=== PATIENT | male | born 1960 | race Two or more races ===

== ENCOUNTER 2016-09-28 18:55 | Emergency (ER) | payer MEDICAID ==
[2016-09-28] MEDS ORDERED: ACETAMINOPHEN 325 MG TAB PO ONE (19:19)
[2016-09-28] MEDS ORDERED: IBUPROFEN 200 MG TAB PO ONE (19:19)
--- NOTE | 2016-09-28 19:24 | UCPHY ---
H & P Patient Type: Established Time Seen by Provider: 09/28/16 19:17 HPI/ROS: CHIEF COMPLAINT: [cough, fever, chills ] HISTORY OF PRESENT ILLNESS: [56-year-old male has been ill for the last 3 days. For the beginning he has had a fever that is moderate in nature though he has not checked. He has also had a dry cough with some sense of overall fatigue. There has only been a mild headache and really no body aches. Cannot recall any specific exposure. He did not get the seasonal influenza vaccination. We are currently an epidemic of influenza at this time. He does have some psychiatric medicines that he is to take but only took it for few days and stop. He is followed by the clinic. He reports that he really does not like taking medications. Thus it is unclear as to whether he has much in the way of underlying problems as at 1 point in time he was on high blood pressure medicines. He at this time devise being diabetic, asthmatic, or having a heart condition or lung condition. ] REVIEW OF SYSTEMS: Constitutional: See above Eyes: No discharge ENT: No sore throat. Cardiovascular: No chest pain, no palpitations. Respiratory: No shortness of breath, or wheezing. Gastrointestinal: No nausea vomiting or diarrhea. No abdominal pain. Genitourinary: No hematuria or frequency. Musculoskeletal: No back pain. Skin: No rashes. Neurological: No headache. 10 point ROS otherwise negative Source: Patient Exam Limitations: No limitations - Personal History Tetanus Vaccine Date: 2009 - Medical/Surgical History Hx Asthma: No Hx Chronic Respiratory Disease: No Hx Diabetes: No Hx Cardiac Disease: Yes Hx Renal Disease: No Hx Cirrhosis: No Hx Alcoholism: No Hx HIV/AIDS: No Hx Splenectomy or Spleen Trauma: No Other PMH: DENIES - Family History Significant Family History: No pertinent family hx - Social History Smoking Status: Never smoked Alcohol Use: None Drug Use: None - Physical Exam Exam: General Appearance: Alert, moderately ill though hemodynamically in no distress. Febrile. Normal phonation. No respiratory distress. Thick accent, speaks Beninese well. Eyes: Pupils equal and round no pallor or injection. No icterus ENT, Mouth: Mucous membranes dry. Pharynx without erythema or exudate. TM Clear. Neck: No adenopathy. Supple. No JVD. Trachea in midline. Respiratory: There are no retractions, lungs so some rales at the right base Cardiovascular: Regular rate and rhythm, no murmur Abdomen: Soft and nontender, no masses, bowel sounds normal. Femoral pulses equal. Neurological: Ox3. No motor weakness. Sensation intact. Gait nl. Skin: Warm and dry, no rashes. Musculoskeletal: No joint swelling. Extremities: No edema. Psychiatric: Patient is oriented X 3, there is no agitation. Constitutional: Initial Vital Signs Temperature (C) 39.3 C H 09/28/16 19:05 Heart Rate 102 H 09/28/16 19:05 Respiratory Rate 18 09/28/16 19:05 Blood Pressure 180/98 H 09/28/16 19:05 O2 Sat (%) 94 09/28/16 19:05 O2 Delivery Mode Room Air Allergies/Adverse Reactions: No Known Allergies Allergy (Verified 09/28/16 19:15) Home Medications: Medication Instructions Recorded Oseltamivir Phosphate [Tamiflu 75 75 mg PO BID #0 cap 09/28/16 mg (*)] levOFLOXACIN [Levofloxacin] 500 mg PO DAILY #10 tablet 09/28/16 Medical Decision Making - Diagnostics Imaging: My Plain Film Review: Plain film of chest two view series. Interpreted by radiologist. Films reviewed me. [ normal heart. Normal lungs. No signs of pneumonia.] ED Course/Re-evaluation: Patient given the following after initial examination: Ibuprofen 600 mg Tylenol 975 mg A L of fluid. NS Chest x-ray: Two view chest. Interpreted by radiologist as negative. Influenza negative White count normal Blood glucose elevated 180, could be a stress response however suspicious for diabetes. LFTs low, protein adequate Once the lactic acid of 3.9 was identified he was given additional 1.5 L of normal saline for a total of 30 cc/kilos. At that time the plan would be to have another lactic acid tested. I reviewed this plan at this time and he is reticent. He really does want to go the hospital a regardless. I feel it best for us to cross separation we get there. Approximately an hour later, I was called to the bedside. Patient really did want to stay any longer. I discussed with him prospect that indeed the follow- up lactic acid might be a strong I high and mandate hospitalization any might have 2nd thoughts that were the case. He agreed to stay for the complete evaluation. Ultimately I met with him a 4th time at which point we discussed the markedly improved lactic acid 1.7. Thereby I believe he is having influenza viral like syndrome and was dehydrated thereby given him the sepsis markers that he had upon arrival. He has improved dramatically. In no way will stay, or be hospitalized at this point. Thereby, will need senior living and get him started on Levaquin and Tamiflu close follow-up Differential Diagnosis: Diagnostic considerations include, but are not limited to, the following: Pneumonia, bronchitis, viral syndrome, influenza, influenza like syndrome, septicemia - Data Points Laboratory Results: Laboratory Results 09/28/16 20:15 09/28/16 20:15 09/28/16 09/28/16 09/28/16 22:23 21:10 20:15 WBC 6.13 10^3/uL (3.80-9.50) RBC 5.01 10^6/uL (4.40-6.38) Hgb 15.4 g/dL (13.7-17.5) Hct 44.3 % (40.0-51.0) MCV 88.4 fL (81.5-99.8) MCH 30.7 pg (27.9-34.1) MCHC 34.8 g/dL (32.4-36.7) RDW 13.2 % (11.5-15.2) Plt Count 140 L 10^3/uL (150-400) MPV 13.3 H fL (8.7-11.7) Neut % (Auto) 78.1 H % (39.3-74.2) Lymph % (Auto) 13.9 L % (15.0-45.0) [place] % (Auto) 7.5 % (4.5-13.0) Eos % (Auto) 0.0 L % (0.6-7.6) Baso % (Auto) 0.2 L % (0.3-1.7) Nucleat RBC Rel Count 0.0 % (0.0-0.2) Absolute Neuts (auto) 4.79 10^3/uL (1.70-6.50) Absolute Lymphs (auto) 0.85 L 10^3/uL (1.00-3.00) Absolute Monos (auto) 0.46 10^3/uL (0.30-0.80) Absolute Eos (auto) 0.00 L 10^3/uL (0.03-0.40) Absolute Basos (auto) 0.01 L 10^3/uL (0.02-0.10) Absolute Nucleated RBC 0.00 10^3/uL (0-0.01) Immature Gran % 0.3 % (0.0-1.1) Immature Gran # 0.02 10^3/uL (0.00-0.10) VBG Lactic Acid 1.7 D mmol/L 3.9 H mmol/L (0.7-2.1) (0.7-2.1) Sodium 136 mEq/L (134-144) Potassium 3.3 L mEq/L (3.5-5.2) Chloride 97 mEq/L (97-110) Carbon Dioxide 24 mEq/l (22-31) Anion Gap 15 mEq/L (8-16) BUN 16 mg/dL (7-23) Creatinine 1.1 mg/dL (0.7-1.3) Estimated GFR > 60 Glucose 180 H mg/dL (70-100) Calcium 9.0 mg/dL (8.5-10.4) Total Bilirubin 1.1 mg/dL (0.1-1.4) Conjugated Bilirubin 0.3 mg/dL (0.0-0.5) Unconjugated Bilirubin 0.8 mg/dL (0.0-1.1) AST 30 IU/L (17-59) ALT 19 L IU/L (21-72) Alkaline Phosphatase 37 L IU/L (38-126) Total Protein 6.9 g/dL (6.3-8.2) Albumin 3.8 g/dL (3.5-5.0) Urine Color YELLOW Urine Appearance CLEAR Urine pH 5.5 (5.0-7.5) Ur Specific [place] 1.020 (1.002-1.030) Urine Protein TRACE H (NEGATIVE) Urine Ketones NEGATIVE (NEGATIVE) Urine Blood TRACE H (NEGATIVE) Urine Nitrate NEGATIVE (NEGATIVE) Urine Bilirubin NEGATIVE (NEGATIVE) Urine Urobilinogen 0.2 EU (0.2-1.0) Ur Leukocyte Esterase NEGATIVE (NEGATIVE) Urine RBC 1-3 /hpf (0-3) Urine WBC NONE SEEN /hpf (0-3) Ur Epithelial Cells TRACE /lpf (NONE-1+) Hyaline Casts 1-3 H /lpf (0-1) Urine Mucus 3+ H /lpf (NONE-1+) Urine Glucose NEGATIVE (NEGATIVE) Influenza Typ A,B (DFA) 09/28/16 19:08 WBC RBC Hgb Hct MCV MCH MCHC RDW Plt Count MPV Neut % (Auto) Lymph % (Auto) [place] % (Auto) Eos % (Auto) Baso % (Auto) Nucleat RBC Rel Count Absolute Neuts (auto) Absolute Lymphs (auto) Absolute Monos (auto) Absolute Eos (auto) Absolute Basos (auto) Absolute Nucleated RBC Immature Gran % Immature Gran # VBG Lactic Acid Sodium Potassium Chloride Carbon Dioxide Anion Gap BUN Creatinine Estimated GFR Glucose Calcium Total Bilirubin Conjugated Bilirubin Unconjugated Bilirubin AST ALT Alkaline Phosphatase Total Protein Albumin Urine Color Urine Appearance Urine pH Ur Specific [place] Urine Protein Urine Ketones Urine Blood Urine Nitrate Urine Bilirubin Urine Urobilinogen Ur Leukocyte Esterase Urine RBC Urine WBC Ur Epithelial Cells Hyaline Casts Urine Mucus Urine Glucose Influenza Typ A,B (DFA) NEGATIVE FOR FLU (NEGATIVE) Medications Given: Discontinued Medications Acetaminophen (Tylenol) 975 mg PO EDNOW ONE Stop: 09/28/16 19:20 Last Admin: 09/28/16 19:32 Dose: 975 mg Sodium Chloride (Ns) 1,000 mls @ 0 mls/hr IV ONCE ONE PRN Reason: Wide Open Stop: 09/28/16 19:54 Last Admin: 09/28/16 20:17 Dose: 1,000 mls Ibuprofen (Motrin) 600 mg PO EDNOW ONE Stop: 09/28/16 19:20 Last Admin: 09/28/16 19:32 Dose: 600 mg Levofloxacin (Levaquin) 500 mg PO EDNOW ONE PRN Reason: Protocol Stop: 09/28/16 23:03 Last Admin: 09/28/16 23:05 Dose: 500 mg Oseltamivir Phosphate (Tamiflu) 75 mg PO EDNOW ONE Stop: 09/28/16 23:03 Last Admin: 09/28/16 23:05 Dose: 75 mg Sodium Chloride (Ns *For Sepsis Order Set Only*) 2,449 ml IV EDNOW ONE Stop: 09/28/16 21:01 Last Admin: 09/28/16 21:20 Dose: 2,449 ml Departure - Departure Disposition: Home, Routine, Self-Care Clinical Impression: Influenza-like illness Condition: Good Instructions: Viral Syndrome (ED), Bacterial Pneumonia (ED) Additional Instructions: Influenza like illness - thus your contagious. It is important to stay home for the next week. Extra fluids is critical Recheck with family doctor in 2 days time Levaquin 5 mg daily for 10 days Tamiflu for 5 days Referrals: JOSÉ MUÑIZ,. [Primary Care Provider] - As per Instructions Prescriptions: levOFLOXACIN [Levofloxacin] 500 mg PO DAILY #10 tablet Oseltamivir Phosphate [Tamiflu 75 mg (*)] 75 mg PO BID #0 cap - PQRS PQRS Measurement: Not applicable
--- NOTE | 2016-09-28 19:52 | DX ---
Chest, PA and Lateral Views, at 7:41 p.m. Clinical History: 56-year-old male with a cough and a fever. Comparison Study: Chest, dated April 13, 2014. Findings: The cardiac and mediastinal silhouette is normal in size. There is no focal infiltrate, ate lectasis, pleural effusion, peripheral interstitial edema, or pneumothorax. There is eventration of t he anterior right hemidiaphragm, unchanged from before. The osseous structures are age-appropriate. T here is mild ventral wedging of the T11 level, unchanged. Impression: No acute abnormality, or substantial change from April 13, 2014.
[2016-09-28] MEDS ORDERED: NS 1,000 ML IV ONE (19:53)
[2016-09-28 20:35] LABS: % IMMATURE GRANULYOCYTES 0.3 % (0.0-1.1); ABSOLUTE IMMATURE GRANULOCYTES 0.02 10^3/uL (0.00-0.10); ADD DIFF? NO; ADD MORPH? NO; ADD SCAN? NO; ATYPICAL LYMPHOCYTE FLAG 10 (0-99); FRAGMENT RBC FLAG 0 (0-99); HEMATOCRIT 44.3 % (40.0-51.0); HEMOGLOBIN 15.4 g/dL (13.7-17.5); LEFT SHIFT FLG 0 (0-99); LIPEMIA HEMOLYSIS FLAG 90 (0-99); MEAN CELL HEMOGLOBIN 30.7 pg (27.9-34.1); MEAN CELL HEMOGLOBIN CONCENTR. 34.8 g/dL (32.4-36.7); MEAN CELL VOLUME 88.4 fL (81.5-99.8); MEAN PLATELET VOLUME 13.3 fL (8.7-11.7); PLATELET CLUMPS FLAG 0 (0-99); PLATELET COUNT 140 10^3/uL (150-400); RED BLOOD CELL COUNT 5.01 10^6/uL (4.40-6.38); RED CELL DISTRIBUTION WIDTH 13.2 % (11.5-15.2)
[2016-09-28 20:44] VITALS: BP 178/80
[2016-09-28 20:47] LABS: ALANINE AMINOTRANSFERASE 19 IU/L (21-72); ALBUMIN 3.8 g/dL (3.5-5.0); ALKALINE PHOSPHATASE 37 IU/L (38-126); ANION GAP 15 mEq/L (8-16); ASPARTATE AMINOTRANSFERASE 30 IU/L (17-59); BILIRUBIN,TOTAL 1.1 mg/dL (0.1-1.4); BILIRUBIN-CONJUGATED 0.3 mg/dL (0.0-0.5); BILIRUBIN-UNCONJUGATED 0.8 mg/dL (0.0-1.1); CARBON DIOXIDE 24 mEq/l (22-31); CHLORIDE 97 mEq/L (97-110); CREATININE 1.1 mg/dL (0.7-1.3); GLOMERULAR FILTRATION RATE > 60; GLUCOSE 180 mg/dL (70-100); POTASSIUM 3.3 mEq/L (3.5-5.2); SODIUM 136 mEq/L (134-144); TOTAL PROTEIN 6.9 g/dL (6.3-8.2)
[2016-09-28] MEDS ORDERED: NS 1,000 ML BAG *FOR SEPSIS ORDER SET ONLY IV ONE (21:00)
[2016-09-28 21:17] LABS: COLOR YELLOW; LEUKOCYTE ESTERASE,URINE NEGATIVE (NEGATIVE); NITRITE,URINE NEGATIVE (NEGATIVE); PH,URINE 5.5 (5.0-7.5)
[2016-09-28 22:09] LABS: MUCUS 3+ /lpf (NONE-1+); WBC,URINE NONE SEEN /hpf (0-3)
[2016-09-28] MEDS ORDERED: OSELTAMIVIR PHOSPHATE 75 MG CAP PO ONE (23:02)
[2016-09-28 23:15] VITALS: PULSE 82; RESP 16; TEMP 98.6; O2SAT 95
== END 2016-09-28 23:08 | disposition home or self-care (01) ==
LOC: CED 18:55
DX: J06.9 Acute upper respiratory infection, unspecified (principal)
CPT/HCPCS: 71020-PO; 80048-PO; 80076-PO; 81003-PO; 81015-PO; 83605-PO; 85025-PO; 87400-PO; 96360-PO; 96361-PO; 99214-PO; G0463-PO

== ENCOUNTER 2017-11-24 19:09 | Emergency (ER) | payer MEDICAID ==
--- NOTE | 2017-11-24 19:24 | EDPHY ---
H & P Time Seen by Provider: 11/24/17 19:18 HPI/ROS: CHIEF COMPLAINT: Left foot pain HISTORY OF PRESENT ILLNESS: Previous ED visit dated 05/19/2016 relates a history of gout. Patient presents with left foot pain in the great toe MTP for the last 2 weeks. He describes worsening with movement or palpation. Difficulty walking. REVIEW OF SYSTEMS: No history of trauma, no fever or chills. PAST MEDICAL HISTORY: Includes hypertension and gout. Negative for history of GI bleed or ulcer. Social history: [facility] Appearance: Alert and conversant, cooperative. Patient has pain swelling and tenderness of the left great toe MTP joint. Skin is intact without lymphangitis or warmth to palpation. Remainder of the foot is nontender. Normal capillary refill motor and sensory in the toes. Calf is nontender, normal compartments. He is afebrile. No blisters or eschar. No crepitus. Emergency Department course/MDM: Likely recurrence of gout. Plan for left foot x-ray, oral prednisone burst, indomethacin. Oral Nsaid in the emergency department. 1939: X-ray negative except for osteoporosis. Ambulatory without difficulty with hard-soled shoe. Smoking Status: Never smoked Constitutional: Initial Vital Signs Temperature (C) 37 C 11/24/17 19:27 Heart Rate 99 11/24/17 19:27 Respiratory Rate 18 11/24/17 19:27 Blood Pressure 164/100 H 11/24/17 19:27 O2 Sat (%) 93 11/24/17 19:27 O2 Delivery Mode Room Air Allergies/Adverse Reactions: No Known Allergies Allergy (Verified 11/24/17 19:31) Home Medications: Medication Instructions Recorded Aspirin 81mg (*) 11/24/17 Indomethacin [Indocin 25 mg (*)] 25 mg PO Q8 #15 cap 11/24/17 Lisinopril 11/24/17 predniSONE [Prednisone] 20 mg PO DAILY 4 Days tablet 11/24/17 MDM/Departure - MDM Imaging Results: Imaging Impressions Foot X-Ray 11/24/17 19:28 Impression: Negative left foot radiographs. Imaging: I viewed and interpreted images myself Medications Given: Discontinued Medications Ibuprofen (Motrin) 600 mg PO EDNOW ONE Stop: 11/24/17 19:29 Last Admin: 11/24/17 19:46 Dose: 600 mg Prednisone (Prednisone) 40 mg PO EDNOW ONE Stop: 11/24/17 19:29 Last Admin: 11/24/17 19:45 Dose: 40 mg - Depart Disposition: Home, Routine, Self-Care Clinical Impression: Gout Qualifiers: Gout site: toe Gout etiology: unspecified cause Chronicity: acute Laterality: left Qualified Code(s): M10.9 - Gout, unspecified Condition: Good Instructions: Gout (ED) Prescriptions: Indomethacin [Indocin 25 mg (*)] 25 mg PO Q8 #15 cap predniSONE [Prednisone] 20 mg PO DAILY 4 Days tablet Referrals: MARY KAY KUMAR [Other] - As per Instructions
[2017-11-24] MEDS ORDERED: predniSONE 20 MG TAB PO ONE (19:28)
[2017-11-24] MEDS ORDERED: IBUPROFEN 600 MG TAB PO ONE (19:28)
[2017-11-24 19:31] VITALS: BP 164/100; PULSE 99; RESP 18; TEMP 98.6; O2SAT 93
== END 2017-11-24 19:50 | disposition home or self-care (01) ==
LOC: CED 19:09
DX: M10.9 Gout, unspecified (principal); I10 Essential (primary) hypertension; Z79.82 Long term (current) use of aspirin
CPT/HCPCS: 73630-PO; J7512; L4386

== ENCOUNTER 2018-01-22 19:05 | Emergency (ER) | payer MEDICAID ==
[2018-01-22] MEDS ORDERED: IBUPROFEN 600 MG TAB PO ONE (19:42)
[2018-01-22] MEDS ORDERED: ACETAMINOPHEN 500 MG TAB PO ONE (19:42)
--- NOTE | 2018-01-22 19:45 | EDPHY ---
H & P Time Seen by Provider: 01/22/18 19:14 HPI/ROS: This patient came in complaining of left more than right foot pain 5/10 in intensity plantar aspect. 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 In the past he presented with toe at the 1st metatarsophalangeal joint felt to be gout in etiology. This time he says this is different in that it is not the 1st metatarsophalangeal joint that is hurting but again the plantar aspect of his feet. He admits noncompliance with his antihypertensives and warfarin for history of hypertension and atrial fibrillation. He explains that he felt he was "taking too many pills". It is not clear how long he has been off of these medications. ROS: Constitutional: He denies fatigue. HEENT: No complaints new line neuro: He denies any headache. No focal numbness tingling weakness Pulmonary: Denies dyspnea Cardiovascular: He denies chest pains. No lower extremity swelling. Denies orthopnea. GI: No nausea vomiting or abdominal pain. : No flank pain. He does report some urinary urgency recently. Denies dysuria. No testicular pain or swelling. Integumentary: No skin rash. No erythema. No pallor or diaphoresis. 10 point ROS is otherwise negative. 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 He denies any drug use. He does not drink alcohol Smoking Status: Never smoked Physical Exam: General Appearance: Alert, no distress. Eyes: Pupils equal and round no pallor or injection. ENT, Mouth: Mucous membranes moist. Respiratory: Clear to auscultation bilaterally. There are no retractions, lungs are clear to auscultation. Cardiovascular: Pulses in ankles are intact bilaterally noted to be irregularly irregular. Heart exam: Irregularly irregular with no murmur gallop or rub. No peripheral edema. Gastrointestinal: Abdomen is soft and nontender, no masses. Neurological: GCS 15. No focal sensory motor deficits. Cranial nerves 2-12 grossly intact. Patient has an accent in speaks slowly. He states that his current speech is baseline for him. Skin: Warm and dry, no rashes. Ft: Patient has on the left foot plantar tenderness from forefoot to midfoot with no tenderness or swelling to the great toe or 1st metatarsophalangeal joint. No erythema. No ankle swelling or tenderness. No calf swelling or tenderness. Right foot: Mild tenderness to the plantar aspect otherwise atraumatic normal. No erythema. No ankle swelling or tenderness no calf swelling or tenderness Extremities other extremities are atraumatic normal Psychiatric: Patient has a flat affect. Otherwise mood and affect are normal DIFFERENTIAL DIAGNOSIS: After history and physical exam differential diagnosis was considered for [ ] Constitutional: Initial Vital Signs Temperature (C) 37.0 C 01/22/18 19:20 Heart Rate 98 01/22/18 19:20 Respiratory Rate 18 01/22/18 19:20 O2 Sat (%) 94 01/22/18 19:20 O2 Delivery Mode Room Air Allergies/Adverse Reactions: No Known Allergies Allergy (Verified 01/22/18 19:20) Home Medications: Medication Instructions Recorded Lisinopril 20 mg PO DAILY #30 tablet 01/22/18 MDM/Departure - MDM Diagnostics: 12 lead EKG performed at 2011 indication rule out hypertensive emergency Atrial fibrillation at 1:07 a.m. Intervals: QRS of 102, QTC of 497 [place]: QRS of 17, T of 207 ST segments: T-wave inversions in lateral leads V4 through V6. When this EKG is compared to any cheek G dated 03/08/2014 the only interval changes appreciated a new flipped T-wave in V4. The patient had flipped T- waves in V5 V6 on this prior EKG was also in AFib at that time Overall assessment atrial fibrillation with evidence of lateral repolarization abnormality question LVH verses ischemia Medications Given: Discontinued Medications Acetaminophen (Tylenol) 1,000 mg PO EDNOW ONE Stop: 01/22/18 19:43 Last Admin: 01/22/18 19:58 Dose: 1,000 mg Clonidine (Catapres) 0.2 mg PO EDNOW ONE Stop: 01/22/18 20:05 Last Admin: 01/22/18 20:20 Dose: 0.2 mg Ibuprofen (Motrin) 600 mg PO EDNOW ONE Stop: 01/22/18 19:43 Last Admin: 01/22/18 19:57 Dose: 600 mg Labetalol HCl (Trandate Injection) 20 mg IVP EDNOW ONE Stop: 01/22/18 22:19 Last Admin: 01/22/18 22:31 Dose: 20 mg Lisinopril (Zestril) 20 mg PO EDNOW ONE Stop: 01/22/18 23:05 Last Admin: 01/22/18 23:06 Dose: 20 mg ED Course/Re-evaluation: Counseled this patient regarding plantar fasciitis. He is treated with ibuprofen Tylenol. He will follow up with Podiatry for any ongoing symptoms despite treatment plan Given patient's significant hypertension with a blood pressure 210/130, I recommended workup to evaluate for potential hypertensive emergency. His urinalysis reveals proteinuria. Given this finding I suggested IV and blood work at 8:40 p.m. Patient accepts this further workup. We also performed an EKG Studies: CBC normal, troponin normal basic metabolic panel with potassium 3.2, glucose of 157. Otherwise normal. Despite clonidine 0.2 mg p.o. His BP remains over quite high with diastolic in the 140s. Patient placed on a monitor and given labetalol 20 mg IV I spoke with the label stamper on-call, Dr. Hunter who agrees with admission plan given evidence of end-organ injury with proteinuria and significantly elevated BP's However, the patient declines admission. He understands the risk of further kidney injury, stroke, air dissection, accepts these risks and will start lisinopril and follow up with his primary care physician instead. At 10:45 p.m. The patient is noted to be ataxic when walking. The appreciate no other focal neuro deficits this finding prompts CT head to evaluate for hypertensive encephalopathy, stroke or other. The patient denies and I do not appreciate alcohol halitosis also had an alcohol level onto his blood work. I spoke with Dr. Car, [facility] emergency physician around 11:00 p.m. Who will follow up with patient's CT head and ethanol level and final disposition. Serum alcohol is less than 10. Patient refuses CT scan. I explained that the patient cannot drive given his ataxia. Explicitly listed this in his discharge instructions. I also called [facility] a but no after hours physician is available to relate this information. Will call back tomorrow during business hours to relate my concern over the patient's ataxia and uncontrolled hypertension. - Depart Disposition: Home, Routine, Self-Care Clinical Impression: Plantar fasciitis, bilateral, Asymptomatic hypertensive urgency, Ataxia Atrial fibrillation Qualifiers: Atrial fibrillation type: chronic Qualified Code(s): I48.2 - Chronic atrial fibrillation Condition: Good Instructions: A-fib (Atrial Fibrillation) (ED), Plantar Fasciitis (ED), Chronic Hypertension (ED), Plantar Fasciitis Exercises (ED) Additional Instructions: Diagnosis: Plantar fasciitis 2. Hypertensive Urgency 3. Chronic Atrial Fibrillation 4. Ataxia Plan: You have ataxia-difficulty walking right now. Given this finding he cannot drive a vehicle. Driving a vehicle could risk crashing the car in hurting or killing herself or other people. Have a friend drive you or take a cab to your physician appointments. Start lisinopril antihypertensive tomorrow morning Given your atrial fibrillation, you should be on a baby asprin a day Purchase very supportive shoes and heel lifts. Take Aleve or ibuprofen anti-inflammatory regularly-Aleve 2 tabs 2 times a day or ibuprofen 600 mg per 6 hr and Tylenol in addition as needed for pain. Tylenol [id number] mg per 4-6 hours but do not exceed 3000 mg in 24 hr. Try to limit the time on your feet on hard surfaces until symptoms improve [facility] tomorrow to try to be seen within the next 1-3 days for recheck of blood pressure. Follow up with Dr. Romero-wind farm support specialist if your symptoms are not improving with treatment plan over the next 5-10 days. Return to the emergency department for any significant worsening despite the treatment plan. Stand Alone Forms: Work Limited Duty, Work Excuse Prescriptions: Lisinopril 20 mg PO DAILY #30 tablet Referrals: Steve Romero DPM [Doctor of Podiatric Medicine] - As per Instructions [facility]. [Clinic] - As per Instructions
[2018-01-22] MEDS ORDERED: ACETAMINOPHEN 500 MG TAB ONE (20:13)
--- NOTE | 2018-01-22 20:16 | CPEKG ---
Heart Rate: 107 RR Interval: 561 QRSD Interval: 102 QT Interval: 372 QTC Interval: 497 QRS [place]: 17 T Wave [place]: 207 EKG Severity - ABNORMAL ECG - EKG Impression: ATRIAL FIBRILLATION, V-RATE 84-138 EKG Impression: VENTRICULAR PREMATURE COMPLEX EKG Impression: REPOL ABNRM SUGGESTS ISCHEMIA, ANT-LAT LEADS EKG Impression: BORDERLINE PROLONGED QT INTERVAL Electronically Signed By: Tristin Harper 22-Jan-2018 20:46:11
[2018-01-22 21:00] LABS: PLATELET COUNT 160 10^3/uL (150-400)
[2018-01-22] MEDS ORDERED: LABETALOL HCL 5 MG/ML 20 ML MDV IVP ONE (22:18)
[2018-01-22] MEDS ORDERED: LISINOPRIL 20 MG TAB PO ONE (23:04)
[2018-01-23 00:13] VITALS: BP 168/130
== END 2018-01-23 00:14 | disposition left against medical advice (07) ==
LOC: CED 19:05
DX: M72.2 Plantar fascial fibromatosis (principal); I48.2 Chronic atrial fibrillation; R27.0 Ataxia, unspecified; I16.0 Hypertensive urgency; I10 Essential (primary) hypertension
CPT/HCPCS: 80048-PO; 81003-PO; 81015-PO; 84484-PO; 85025-PO; 96374; G0480

== ENCOUNTER 2018-09-24 17:05 | Emergency (ER) | payer MEDICAID ==
--- NOTE | 2018-09-24 18:21 | EDPHY ---
H & P Stated Complaint: Malaise/diabetic Time Seen by Provider: 09/24/18 18:21 - Personal History Current Tetanus/Diphtheria Vaccine: Yes Tetanus Vaccine Date: 2009 - Medical/Surgical History Hx Asthma: No Hx Chronic Respiratory Disease: No Hx Diabetes: No Hx Cardiac Disease: Yes Hx Renal Disease: No Hx Cirrhosis: No Hx Alcoholism: No Hx HIV/AIDS: No Hx Splenectomy or Spleen Trauma: No Other PMH: Med hx-HTN, GOUT,. Surg-none - Social History Smoking Status: Never smoked Constitutional: Initial Vital Signs Temperature (C) 37.0 C 09/24/18 17:42 Heart Rate 92 09/24/18 17:42 Respiratory Rate 22 H 09/24/18 17:42 Blood Pressure 190/111 H 09/24/18 17:42 O2 Sat (%) 95 09/24/18 17:42 O2 Delivery Mode Room Air Allergies/Adverse Reactions: No Known Allergies Allergy (Verified 09/24/18 17:45) Home Medications: Medication Instructions Recorded Lisinopril 20 mg PO DAILY #30 tablet 01/22/18 Apixaban [Eliquis] 5 mg PO BID #60 tab 09/24/18 Eliquis 09/24/18 Lisinopril/Hydrochlorothiazide 1 each PO DAILY #30 tablet 09/24/18 [Zestoretic 20-12.5 mg Tablet] Metformin 1000 mg 09/24/18 Medical Decision Making ED Course/Re-evaluation: CHIEF COMPLAINT: Shortness of breath HISTORY OF PRESENT ILLNESS: The patient is a 58 y/o male with a history of hypertension and atrial fibrillation complaining of a high blood pressure and shortness of breath. Today he went to his director of optimization who noticed that the patients blood pressure was too high. The director of optimization became concerned and brought the patient to the emergency department. The patient denies taking his Lisinopril or Eliquis as prescribed as he doesn't like how they make him feel. No fever, chest pain, abdominal pain, urinary or bowel complaints, numbness, paresthesias. REVIEW OF SYSTEMS: A comprehensive 10 system review of systems is otherwise negative aside from elements mentioned in the history of present illness and medical decision making. PHYSICAL EXAM: HR, BP, O2 Sat, RR. Temp noted General Appearance: Alert, well hydrated, appropriate, and non-toxic appearing. Head: Atraumatic without scalp tenderness or obvious injury Eyes: Pupils equal, round, reactive to light and accommodation, EOMI, no trauma , no injection. Ears: Clear bilaterally, no perforation, normal landmarks Nose: Atraumatic, no rhinorrhea, clear. Throat: There is no erythema or exudates, no lesions, normal tonsils, mucus membranes moist. Neck: Supple, 2+ carotid upstroke, nontender, no lymphadenopathy. Respiratory: No retractions, no distress, no wheezes, and no accessory muscle use. Lungs are clear to auscultation bilaterally. Cardiovascular: Regular rate and rhythm, no murmurs, rubs, or gallops. Bilateral carotid, radial, dorsalis pedis, and posterior tibial pulses intact. Good capillary refill all extremities. Gastrointestinal: Abdomen is soft, nontender, non-distended, no masses, no rebound, no guarding, no peritoneal signs. Musculoskeletal: Normal active ROM of all extremities, atraumatic. Neurological: Alert, appropriate, and interactive. The patient has normal DTRs and non-focal cranial nerves, motor, sensory, and cerebellar exam. Skin: No rashes, good turgor, no nodules on palpation. Past medical history: Hypertension, atrial fibrillation, diabetes, gout Past surgical history: Denies Family history: Denies Social history: Lives in [place], [facility], originally from [place] DIAGNOSTICS/PROCEDURES/CRITICAL CARE TIME: EKG: The 12 lead EKG was interpreted by myself as atrial fibrillation with a rate of 104. See hard copy and/or "tracemaster" electronic copy for interpretation. DIFFERENTIAL DIAGNOSIS: The differential diagnosis for the patient's shortness of breath and hypoxemia included but was not limited to hypertensive urgency, pneumonia, myocardial infarction, acute mountain sickness, high altitude pulmonary edema, congestive heart failure, and pulmonary embolus. MEDICAL DECISION MAKING: The patient is a 58 y/o male with a history of hypertension and atrial fibrillation complaining of a high blood pressure and shortness of breath. He denies taking Lisinopril or Eliquis as prescribed. On exam he has a blood pressure of 190/111. This patient is not in a hypertensive emergency, but he is noncompliant with his meds. Labs ordered;10mg PO Eliquis and 20mg PO Lisinopril/ HCTZ administered. 1824: I interpreted patient's EKG as atrial fibrillation with a rate of 104. 1930: Reassessed patient and discussed EKG findings. I have stressed the importance of taking his medications as prescribed. Return precautions provided ; patient is comfortable with this plan. - Data Points Laboratory Results: 09/24/18 17:55 POC Glucose 95 mg/dL mg/dL (70-100) Medications Given: Discontinued Medications Apixaban (Eliquis) 10 mg PO EDNOW ONE Stop: 09/24/18 18:41 Last Admin: 09/24/18 19:09 Dose: 10 mg Lisinopril/HCTZ (Zestoretic) 1 ea PO EDNOW ONE Stop: 09/24/18 18:41 Last Admin: 09/24/18 19:09 Dose: 1 ea Point of Care Test Results: Chemistry 09/24/18 17:55 POC Glucose 95 mg/dL mg/dL (70-100) Departure - Departure Disposition: Home, Routine, Self-Care Clinical Impression: Noncompliance with medication regimen Hypertension Qualifiers: Hypertension type: unspecified Qualified Code(s): I10 - Essential (primary) hypertension Atrial fibrillation Qualifiers: Atrial fibrillation type: unspecified Qualified Code(s): I48.91 - Unspecified atrial fibrillation Condition: Good Instructions: Lisinopril/Hydrochlorothiazide (By mouth), Apixaban (By mouth), A -fib (Atrial Fibrillation) (ED), Hypertension (ED) Additional Instructions: 1. Take Eliquis and Lisinopril as prescribed. 2. Follow-up with your primary doctor within 72 hours. 3. Return to the Emergency Department for fever, chest pain, shortness of breath , increasing pain or other worsening of condition. Referrals: [facility],. [Clinic] - As per Instructions Prescriptions: Apixaban [Eliquis] 5 mg PO BID #60 tab Lisinopril/Hydrochlorothiazide [Zestoretic 20-12.5 mg Tablet] 1 each PO DAILY # 30 tablet Report Scribed for: Bhaskar Srivastava Report Scribed by: Merry Rosario Date of Report: 09/24/18 Time of Report: 18:23
[2018-09-24] MEDS ORDERED: LISINOPRIL/HCTZ 20/12.5MG 1 EA TAB PO ONE (18:40)
[2018-09-24] MEDS ORDERED: APIXABAN 5 MG TAB PO ONE (18:40)
[2018-09-24 19:42] VITALS: BP 198/160
--- NOTE | 2018-09-25 10:28 | CPEKG ---
Test Reason : OPEN Blood Pressure : / mmHG Vent. Rate : 104 BPM Atrial Rate : 197 BPM P-R Int : 134 ms QRS Dur : 093 ms QT Int : 374 ms P-R-T Axes : 000 011 206 degrees QTc Int : 492 ms Atrial fibrillation Probable LVH with secondary repol abnrm Borderline prolonged QT interval Confirmed by Celestino Martinez ([id number]) on 09/25/2018 10:27:54 AM Referred By: Bhaskar Srivastava Confirmed By:Celestino Martinez
== END 2018-09-24 19:38 | disposition home or self-care (01) ==
DX: I10 Essential (primary) hypertension (principal); I48.91 Unspecified atrial fibrillation; Z91.14 Patient's other noncompliance with medication regimen; M10.9 Gout, unspecified; E11.9 Type 2 diabetes mellitus without complications; Z79.84 Long term (current) use of oral hypoglycemic drugs; Z79.01 Long term (current) use of anticoagulants